=== PATIENT | male | born 1990 | race African-American/Black ===

== ENCOUNTER 2018-12-13 17:26 | Emergency (ER) | payer OTHER ==
[~2018-12-13] VITALS: Ht 175.3 cm; Wt 59.0 kg
[~2018-12-13 17:26] MED LIST: CLOTRIMAZOLE AF30 GM TOPIC; DIPHENHYDRAMINE25 M1 ORAL; IBUPROFEN600 MG ORAL; NKM; NORCO 5-325 TA1 EAC1 ORAL; PREDNISONE20 MG ORAL; RANITIDINE HCL150 MG ORAL
--- NOTE | 2018-12-13 17:50 | NUR ---
ED Nurse Note: Patient walked in c/o parietal region abscess x 5 days. Denies pain at this time. Pt is A&O x4, V/S stable with no s/s of acute distress noted at this time. Pt denies any medical hx; will continue to monitor the pt.
[2018-12-13 17:51] VITALS: BP 106/62
--- NOTE | 2018-12-13 17:54 | NUR ---
ED Nurse Note: pt came to ED from home c/o rash on head x 4 days ago. per pt pain 05/04. per pt he took tylenol and ibuprofen for the pain.
--- NOTE | 2018-12-13 18:42 | Emergency Room Report ---
History of Present Illness General Chief Complaint: Skin Rash/Abscess Source: Patient Present Illness HPI 28-year-old male presents to the emergency department complaining of progressive swelling and erythema to a very localized area on the left side of his head. He describes some tenderness with palpation but otherwise no pain. Denies itching, trauma or fall. He denies similar symptoms in the past. Denies CABRERA, ear pain, changes in hearing, Fevers or chills. Allergies: Coded Allergies: FISH CONTAINING PRODUCTS (Verified Allergy, Unknown, 09/05/15) Patient History Past Medical History: see triage record Past Surgical History: none Pertinent Family History: none Immunizations: UTD Reviewed Nursing Documentation: PMH: Agreed; PSxH: Agreed Nursing Documentation-PMH Past Medical History: No Stated History Review of Systems All Other Systems: negative except mentioned in HPI Physical Exam Vital Signs Date Time Temp Pulse Resp B/P (MAP) Pulse Ox O2 Delivery O2 Flow Rate FiO2 12/13/18 17:46 99.0 74 18 106/62 93 Room Air Sp02 EP Interpretation: reviewed, normal General Appearance: no apparent distress, alert, GCS 15, non-toxic Head: normocephalic, atraumatic, other - 1.5cm in diameter epidermoid cyst with some erythema and drainage. mild tenderness. located on the left side burn. no LAD. portion of the capsule is noted to be open and visible Eyes: bilateral eye normal inspection, bilateral eye PERRL ENT: hearing grossly normal, normal voice Neck: full range of motion Respiratory: lungs clear, normal breath sounds, speaking full sentences Cardiovascular #1: regular rate, rhythm Musculoskeletal: gait/station normal, normal range of motion Neurologic: alert, oriented x3, responsive, motor strength/tone normal, sensory intact, speech normal, grossly normal Psychiatric: judgement/insight normal Skin: normal color, no rash, warm/dry, well hydrated, other - 1.5cm in diameter epidermoid cyst with some erythema and drainage. mild tenderness. located on the left side burn. no LAD. portion of the capsule is noted to be open and visible Lymphatic: no adenopathy Medical Decision Making PA Attestation Dr. Curry is my supervising Physician whom patient management has been discussed with. Diagnostic Impression: Primary Impression: Epidermal cyst ER Course 48-year-old female presents to the emergency department complaining of need for medication refill. Patient reports that she is not taken her high blood pressure medication for over one week. Patient states that she was told her blood pressure was systolic 197 and that she needed to go to the ER. Patient states that during triage systolic was 200 something. Denies headache, dizziness, nausea, vomiting, abdominal pain, syncope or visual changes. Patient denies floaters or flashing lights. Denies chest pain, shortness of breath or dyspnea. he denies pain at this time. Ddx considered but are not limited to cellulitis, abscess, cystic acne, necrotizing fasciitis, insect bite. Vital signs: are WNL, pt. is afebrile H&PE are most consistent with : 1.5cm in diameter epidermoid cyst with some erythema and drainage. mild tenderness. located on the left side burn. no LAD. portion of the capsule is noted to be open and visible ORDERS: none required at this time, the diagnosis is clinical ED INTERVENTIONS: Bacitracin is applied. I discussed with this patient that definitive treatment involved surgical excision of the entire cyst otherwise his symptoms will be reoccurring. DISCHARGE: At this time pt. is stable for d/c to home. Will provide printed patient care instructions, and any necessary prescriptions. Care plan and follow up instructions have been discussed with the patient prior to discharge. Last Vital Signs Date Time Temp Pulse Resp B/P (MAP) Pulse Ox O2 Delivery O2 Flow Rate FiO2 12/13/18 17:51 98.9 68 18 106/62 93 Room Air Disposition: HOME, SELF-CARE Condition: Stable Scripts Cephalexin* (KEFLEX*) 500 Mg Capsule 500 MG ORAL EVERY 12 HOURS for 7 Days, #14 CAP 0 Refills Prov: Jennifer Farrell 12/13/18 Clindamycin Phosphate (CLINDAGEL) 40 Ml Gel..ml. 1 APPLIC TP BID, #40 ML Prov: Jennifer Farrell 12/13/18 Patient Instructions: Epidermal Cyst Additional Instructions: Take medications as directed. Follow up with a Primary Care Provider in 3-5 days,for referral : Recommend follow-up with dermatology for surgical cyst removal. --Please review list of primary care clinics, if you do not already have a primary care provider Return sooner to ED if new symptoms occur, or current symptoms become worse. - Please note that this Emergency Department Report was dictated using [employer] Fashion[employer] specialist technology software, occasionally this can lead to erroneous entry secondary to interpretation by the dictation equipment. Jennifer Farrell Dec 13, 2018 18:42
[2018-12-13] MEDS ORDERED: CEPHALEXIN500 MG ORAL (18:44)
[2018-12-13] MEDS ORDERED: CLINDAGEL40 M1 TP (18:44)
[2018-12-13] MEDS ORDERED: Bacitracin Oint UD TOPIC ONE (18:45)
[2018-12-13 18:59] VITALS: BP 106/62
--- NOTE | 2018-12-13 18:59 | NUR ---
ED Nurse Note: pt was cleared for discharge by olegario. prescription and discharge instruction explained. pt is aox 4, pt able to verbalize understanding. id band removed. pt able to walk with steady gait. pt left with all belongings
== END 2018-12-13 19:00 | disposition home or self-care (01) ==
LOC: EMR 18:10
DX: L72.0 Epidermal cyst (principal)
CPT/HCPCS: 99282

== ENCOUNTER 2019-01-16 14:50 | Emergency (ER) | payer OTHER ==
[~2019-01-16] VITALS: Ht 172.7 cm; Wt 65.8 kg
[~2019-01-16 14:50] MED LIST changes: +CEPHALEXIN500 MG ORAL; +CLINDAGEL40 M1 TP
[2019-01-16 14:55] VITALS: BP 113/68
[2019-01-16] MEDS ORDERED: NKM (14:59)
--- NOTE | 2019-01-16 15:01 | NUR ---
ED Nurse Note: Pt c/o bump on his left upper lip 1-2 days. No trauma to his face and no bleeding. Pt is AAO x4, with no difficulty breathing.
[2019-01-16] MEDS ORDERED: BACITRACIN-P28.35 GM TP (15:19)
[2019-01-16] MEDS ORDERED: ERYTHROMYCIN 2%30 GM TP (15:19)
--- NOTE | 2019-01-16 15:20 | Emergency Room Report ---
History of Present Illness General Chief Complaint: Skin Rash/Abscess Source: Patient Present Illness HPI 28-year-old male patient presents the ER complaining of bump on his upper lip for the past 2 days. Reports bump is painful. Denies drainage. Denies fever, chest pain, shortness of breath. Denies rash or bumps elsewhere. Denies any medication for relief of symptoms. Denies other aggravating or relieving factors. Allergies: Coded Allergies: FISH CONTAINING PRODUCTS (Verified Allergy, Unknown, 09/05/15) Patient History Past Medical History: see triage record Reviewed Nursing Documentation: PMH: Agreed; PSxH: Agreed Nursing Documentation-PMH Past Medical History: No Stated History Review of Systems All Other Systems: negative except mentioned in HPI Physical Exam Vital Signs Date Time Temp Pulse Resp B/P (MAP) Pulse Ox O2 Delivery O2 Flow Rate FiO2 01/16/19 14:55 98.2 18 113/68 99 Room Air 01/16/19 14:55 78 Sp02 EP Interpretation: reviewed, normal General Appearance: well appearing, no apparent distress, alert, GCS 15, non- toxic Head: normocephalic, atraumatic Eyes: bilateral eye normal inspection, bilateral eye PERRL ENT: hearing grossly normal, normal pharynx, no angioedema, normal voice, uvula midline, moist mucus membranes Neck: full range of motion Respiratory: lungs clear, normal breath sounds, no rhonchi, no respiratory distress, no accessory muscle use, no wheezing, speaking full sentences Cardiovascular #1: regular rate, rhythm, no edema Musculoskeletal: back normal, digits/nails normal, gait/station normal, normal range of motion, non-tender Neurologic: alert, oriented x3, responsive, motor strength/tone normal, sensory intact Skin: other - Acne lesion on upper lip, comes to a point, no drainage, no surrounding edema , no palpable mass Medical Decision Making PA Attestation Dr. Curry is my supervising Physician whom patient management has been discussed with. Diagnostic Impression: Primary Impression: Acne ER Course Pt. presents to the ED c/o bump on upper lip. Ddx considered but are not limited to acne, comedones, abscess, cellulitis, folliculitis, pustule Vital signs: are WNL, pt. is afebrile Ordered medication. ER COURSE Physical exam consistent with acne. Able to express pus in the ER, no I&D procedure required, patient tolerated procedure well without difficulty. Will discharge home with medication. Apply warm compresses. Keep clean and dry. Follow-up with primary care provider discussed referral to dermatology. DISCHARGE: At this time pt. is stable for d/c to home. Patient resting comfortably, in no acute distress, nontoxic appearinge. Will provide printed patient care instructions, and any necessary prescriptions. Care plan and follow up instructions have been discussed with the patient prior to discharge. Patient provided with list of healthcare clinics to establish primary care physician. Patient instructed to follow-up with primary care provider in 3 - 5 days. Patient questions asked and answered. ER precautions given. Patient instructed to return to ER immediately for any new or worsening of symptoms including but not limited to increasing SOB, persistent fever. - Please note that this Emergency Department Report was dictated using [employer] manager [place] technology software, occasionally this can lead to erroneous entry secondary to interpretation by the dictation equipment. Last Vital Signs Date Time Temp Pulse Resp B/P (MAP) Pulse Ox O2 Delivery O2 Flow Rate FiO2 01/16/19 14:55 98.2 78 18 113/68 99 Room Air Status: improved Disposition: HOME, SELF-CARE Condition: Stable Scripts Bacitracin/Polymyxin B Sulfate (BACITRACIN-POLYMYXIN OINTMENT) 28.35 Gm Oint...g. 1 APPLIC TP BID, #28 GM Prov: Rafa Jain 01/16/19 Erythromycin Base/Ethanol (ERYTHROMYCIN 2% GEL) 30 Gm Gel..gram. 30 GM TP BID, #30 GM Prov: Rafa Jain 01/16/19 Patient Instructions: Acne, [id number] Additional Instructions: Followup with primary care provider in 3 -5 days. Request referral to dermatology as needed. Do not scratch or itch. Apply warm compresses to affected area. Patient questions asked and answered. ER precautions given, patient instructed to return to ER immediately for any new or worsening of symptoms. [facility] Rafa Jain Jan 16, 2019 15:19
[2019-01-16 15:23] VITALS: BP 118/70
--- NOTE | 2019-01-16 15:23 | NUR ---
ED Nurse Note: Pt cleared by health Care Provider for discharge. DC instructions/prescription was given and explained to pt and verbalized understanding of teachings. All medical devices such as ID band removed. Pt is AAO x4, ambulatory and left with all personal belongings.
== END 2019-01-16 15:23 | disposition home or self-care (01) ==
LOC: EMR 15:18
DX: L70.9 Acne, unspecified (principal)
CPT/HCPCS: 99283

== ENCOUNTER 2019-04-14 20:07 | Emergency (ER) | payer OTHER ==
[~2019-04-14] VITALS: Ht 175.3 cm; Wt 63.5 kg
[~2019-04-14 20:07] MED LIST changes: +BACITRACIN-P28.35 GM TP; +ERYTHROMYCIN 2%30 GM TP
[2019-04-14 20:40] VITALS: BP 113/67
--- NOTE | 2019-04-14 20:40 | NUR ---
ER Nurse Note: Pt came to ER c/o burning and pain when voiding. Pt states he had white discharge after having unprotected sex 2 weeks ago. Pt a&ox4, VSS, no signs of distress. Will continue to montior.
[2019-04-14 20:53] LABS: APPEARANCE,URINE SLIGHTLY CLOUDY; BILIRUBIN, URINE NEGATIVE (NEGATIVE); GLUCOSE, URINE (UA) NEGATIVE (NEGATIVE); KETONES,URINE NEGATIVE (NEGATIVE); LEUKOCYTE ESTERASE ,URINE 3+ (NEGATIVE); NITRITE,URINE NEGATIVE (NEGATIVE); PH,URINE 6 (4.5-8.0); PROTEIN,URINE NEGATIVE (NEGATIVE); UROBILINOGEN,URINE 4 MG/DL (0.0-1.0)
--- NOTE | 2019-04-14 20:56 | Emergency Room Report ---
History of Present Illness General Chief Complaint: Male Urogenital Problems Source: Patient Present Illness HPI Patient is a 28-year-old male presented after increased urinary burning sensation. Patient reports having onset of symptoms approximately 2 weeks ago after having unprotected sex. He reports having her increased urethral discharge. He reports having increased discharge which was cloudy in nature. He denies any fever. Not been vomiting. He reports having some increased urgency of urination. He denies any testicular swelling or any skin lesions. Allergies: Coded Allergies: FISH CONTAINING PRODUCTS (Verified Allergy, Unknown, 09/05/15) Patient History Past Medical History: see triage record Reviewed Nursing Documentation: PMH: Agreed; PSxH: Agreed Nursing Documentation-PMH History Of Psychiatric Problem: Yes - STD Review of Systems All Other Systems: negative except mentioned in HPI Physical Exam Vital Signs Date Time Temp Pulse Resp B/P (MAP) Pulse Ox O2 Delivery O2 Flow Rate FiO2 04/14/19 20:25 97.9 73 18 99 Room Air General Appearance: well appearing, no apparent distress, alert, GCS 15, non- toxic Head: normocephalic, atraumatic ENT: hearing grossly normal, normal voice Neck: full range of motion, supple Respiratory: chest non-tender, lungs clear, normal breath sounds, no respiratory distress, speaking full sentences Cardiovascular #1: normal inspection Gastrointestinal: normal inspection Genitourinary: no CVA tenderness Neurologic: normal inspection, alert, oriented x3, responsive, software engineer advisor III-XII nml as tested, normal gait Psychiatric: mood/affect normal Skin: normal inspection, normal color, no rash Medical Decision Making Diagnostic Impression: Primary Impression: Urethritis ER Course Patient present for dysuria. Differential diagnosis include was not limited to urethritis, urinary tract infection, herpes, among others. Patient has a benign exam and does not appear to require any imaging or laboratory testing at this time. Patient noted to have dysuria after recent unprotected sex. He states that he had no allergies. He was noted to have symptomatology consistent with urethritis. Patient was given Rocephin IM. He was given given prescription for doxycycline. He was advised to follow-up with his primary care physician for recheck. Labs Test 04/14/19 20:31 Urine Color Yellow Urine Appearance Slightly cloudy Urine pH 6 (4.5-8.0) Urine Specific [place] 1.020 (1.005-1.035) Urine Protein Negative (NEGATIVE) Urine Glucose (UA) Negative (NEGATIVE) Urine Ketones Negative (NEGATIVE) Urine Blood 2+ (NEGATIVE) Urine Nitrite Negative (NEGATIVE) Urine Bilirubin Negative (NEGATIVE) Urine Urobilinogen 4 MG/DL (0.0-1.0) Urine Leukocyte Esterase 3+ (NEGATIVE) Urine RBC 0-2 /HPF (0 - 0) Urine WBC Tntc /HPF (0 - 0) Urine Squamous Epithelial Cells None /LPF (NONE/OCC) Urine Bacteria Occasional /HPF (NONE) Last Vital Signs Date Time Temp Pulse Resp B/P (MAP) Pulse Ox O2 Delivery O2 Flow Rate FiO2 04/14/19 20:25 97.9 73 18 99 Room Air Status: improved Disposition: HOME, SELF-CARE Condition: Stable Scripts Doxycycline Monohydrate* (DOXYCYCLINE MONOHYDRATE*) 100 Mg Capsule 100 MG ORAL Q12H, #14 CAP 0 Refills Prov: Allan Meneses MD 04/14/19 Allan Meneses MD April 14, 2019 20:56
[2019-04-14 20:57] LABS: COLOR,URINE YELLOW
[2019-04-14] MEDS ORDERED: DOXYCYCLINE MO100 MG ORAL (20:57)
[2019-04-14] MEDS ORDERED: Lidocaine 1% MPF 10mg/ml 5ml INJ ONE (21:00)
[2019-04-14 21:45] VITALS: BP 113/67
--- NOTE | 2019-04-14 21:45 | NUR ---
ER Nurse Note: All orders completed per ERMD orders. Pt seen, treated, medically cleared for discharge by ERMD. Discharge instructions and prescriptions given with repeat verbazliaion by pt. Instructed pt to follow up with primary care provider within one week. Pt a&ox4, VSS, no signs of distress. ID band removed. Pt left with all belongings with steady gait via own transportation.
== END 2019-04-14 21:45 | disposition home or self-care (01) ==
LOC: EMR 21:00
DX: N34.2 Other urethritis (principal); Z91.013 Allergy to seafood
CPT/HCPCS: 81003; 87086; 96372; 96374; 99284; J0696

== ENCOUNTER 2019-07-07 16:50 | Emergency (ER) | payer OTHER ==
[~2019-07-07] VITALS: Ht 175.3 cm; Wt 72.6 kg
[~2019-07-07 16:50] MED LIST changes: +DOXYCYCLINE MO100 MG ORAL
[2019-07-07 17:10] VITALS: BP 102/57
--- NOTE | 2019-07-07 17:10 | NUR ---
ED Nurse Note: pt walked in to ED due to toothache and pt wants durg rehab referal. AAO x4. respirations even and non-labored noted. will wait for the further order.
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
[2019-07-07] MEDS ORDERED: CHLORHEXIDINE473 ML MM (17:46)
[2019-07-07] MEDS ORDERED: AMOXICILLIN500 MG ORAL (17:46)
[2019-07-07 17:55] VITALS: BP 102/57
--- NOTE | 2019-07-07 17:55 | NUR ---
ER DISCHARGE NOTE: Patient is cleared to be discharged per ERMD, pt is aox4, on room air, with stable vital signs. pt was given dc and prescription instructions, pt was able to verbalize understanding, pt id band removed without complications. pt is able to ambulate with steady gait. pt took all belongings.
== END 2019-07-07 17:56 | disposition home or self-care (01) ==
LOC: EMR 17:50
DX: K05.20 Aggressive periodontitis, unspecified (principal); F19.10 Other psychoactive substance abuse, uncomplicated; Z91.013 Allergy to seafood
CPT/HCPCS: 99282

== ENCOUNTER 2019-09-10 19:14 | Emergency (ER) | payer OTHER ==
[~2019-09-10] VITALS: Ht 175.3 cm; Wt 63.5 kg
[~2019-09-10 19:14] MED LIST changes: +AMOXICILLIN500 MG ORAL; +CHLORHEXIDINE473 ML MM
--- NOTE | 2019-09-10 19:47 | NUR ---
ED Nurse Note: Patient brought in by ambulance for behavioral disturbance with history of recreational drug use. Mom at bedside.
--- NOTE | 2019-09-10 20:00 | NUR ---
ED Nurse Note: Patient tolerated IV start well, blood drawn and sent to lab, urine specimen pending void.
[2019-09-10 20:26] VITALS: BP 110/66
[2019-09-10 20:33] LABS: BASOPHILS % (AUTO) 0.6 % (0.0-2.0); EOSINOPHILS % (AUTO) 0.1 % (0.0-3.0); HEMATOCRIT 44.7 % (42.0-52.0); HEMOGLOBIN 15.2 G/DL (14.2-18.0); LYMPHOCYTES % (AUTO) 11.9 % (20.0-45.0); MEAN CORPUSCULAR VOLUME 96 FL (80-99); MONOCYTES % (AUTO) 9.4 % (1.0-10.0); PLATELET COUNT 246 K/UL (150-450); RED BLOOD COUNT 4.67 M/UL (4.70-6.10); RED CELL DISTRIBUTION WIDTH 11.4 % (11.6-14.8); WHITE BLOOD COUNT 12.2 K/UL (4.8-10.8)
[2019-09-10 20:52] LABS: ANION GAP 10 mmol/L (5-15); BLOOD UREA NITROGEN 16 mg/dL (7-18); CALCIUM 10.1 MG/DL (8.5-10.1); CARBON DIOXIDE 28 MMOL/L (21-32); CHLORIDE 101 MMOL/L (98-107); CREATININE 1.2 MG/DL (0.55-1.30); POTASSIUM 4.9 MMOL/L (3.5-5.1); SODIUM 139 MMOL/L (136-145)
--- NOTE | 2019-09-10 21:01 | Emergency Room Report ---
History of Present Illness General Chief Complaint: Behavioral Complaint Source: Patient Present Illness HPI 28-year-old male significant history of methamphetamine abuse and marijuana use brought in by paramedics after he started reporting that he is hearing voices and feeling paranoia. According to mom who was notified later by patient's mom to observe the hallucinations patient has an extensive history of methamphetamine use and he has been trying to get into rehab centers without any success. Patient reports that he uses methamphetamine on daily basis, denies any other drug use, alcohol intake. Reports that the voices are telling him to run away however denies any suicidal thoughts or homicidal ideations. Patient does not own a firearm. Mom is concerned about underlying bipolar or schizophrenic disorder I advised the patient to follow-up with psychiatrist in that regard however he needs to be off methamphetamine in order to be ready for that assessment. Denies chest pain, shortness of breath, palpitation, abdominal pain, nausea vomiting and all the symptoms. Patient sitting comfortably with stable vital sign and cooperative. Allergies: Coded Allergies: FISH CONTAINING PRODUCTS (Verified Allergy, Unknown, 09/05/15) Patient History Past Medical History: see triage record Past Surgical History: unable to obtain Family History: none Social History: drug use - meth Immunizations: UTD Reviewed Nursing Documentation: PMH: Agreed; PSxH: Agreed Nursing Documentation-PMH Past Medical History: No Stated History Review of Systems All Other Systems: negative except mentioned in HPI Physical Exam Vital Signs Date Time Temp Pulse Resp B/P (MAP) Pulse Ox O2 Delivery O2 Flow Rate FiO2 09/10/19 19:05 98.4 73 20 110/66 (81) 99 Room Air Sp02 EP Interpretation: reviewed, normal General Appearance: alert/responsive, no apparent distress, GCS 15, non-toxic Head: atraumatic Eyes: PERRL, lids + conjunctiva normal ENT: hearing intact, no angioedema Neck: supple/symm/no masses, no meningismus Respiratory: effort normal, no wheezing, chest symmetrical Cardiovascular: regular rate, rhythm, no edema Gastrointestinal: non-tender, no mass, non-distended, no rebound/guarding, normal bowel sounds Musculoskeletal: gait & station normal, strength & tone normal, normal ROM, non -tender Neurologic: oriented x3, sensory intact, normal speech Psychiatric: memory normal, no suicidal/homicidal ideation, other - Delusions and hallucinations Skin: no rash Lymphatic: normal inspection Medical Decision Making PA Attestation All my diagnosis and treatment plans were reviewed ad discussed with my supervising physician Dr. Morejon Diagnostic Impression: Primary Impression: Methamphetamine abuse Additional Impression: UTI (urinary tract infection) ER Course 28-year-old male significant history of methamphetamine abuse and marijuana use brought in by paramedics after he started reporting that he is hearing voices and feeling paranoia. According to mom who was notified later by patient's mom to observe the hallucinations patient has an extensive history of methamphetamine use and he has been trying to get into rehab centers without any success. Patient reports that he uses methamphetamine on daily basis, denies any other drug use, alcohol intake. Reports that the voices are telling him to run away however denies any suicidal thoughts or homicidal ideations. Patient does not own a firearm. Mom is concerned about underlying bipolar or schizophrenic disorder I advised the patient to follow-up with psychiatrist in that regard however he needs to be off methamphetamine in order to be ready for that assessment. Denies chest pain, shortness of breath, palpitation, abdominal pain, nausea vomiting and all the symptoms. Patient sitting comfortably with stable vital sign and cooperative. Ddx considered but are not limited to: generalized anxiety disorder, panic attack, depression with psychotic feature, bipolar disorder, drug overdose Vital signs: are WNL, pt. is afebrile H&PE are most consistent with: Methamphetamine abuse, UTI ORDERS: Psychiatric order set, keflex ED INTERVENTIONS: NS bolus DISCHARGE: At this time pt. is stable for d/c to home. Will provide printed patient care instructions, and any necessary prescriptions. Care plan and follow up instructions have been discussed with the patient prior to discharge. Patient is stable to be discharged home voluntarily go to psychiatric facilities. Patient is 28 years old, has full judgment and aware of the surroundings and expresses voluntary interest in checking himself into mental health facility or rehab center. Mom is concerned that he needs to stay at the hospital and be admitted tonight as he has no vertigo and she does not want him to go home with her. After discharge the patient patient starts acting, same that is not happy that he is possibly controlled with methamphetamine mom starts needling him that he needs to start saying that his thoughts of hurting himself or problems in order to stay. Patient stable time of discharge and denies any suicidal homicidal ideation. Last Vital Signs Date Time Temp Pulse Resp B/P (MAP) Pulse Ox O2 Delivery O2 Flow Rate FiO2 09/10/19 20:26 98.4 79 20 110/66 99 Room Air Disposition: HOME, SELF-CARE Condition: Stable Scripts Cephalexin* (KEFLEX*) 500 Mg Capsule 500 MG ORAL EVERY 6 HOURS for 7 Days, #28 CAP Prov: Suly Reyes 09/10/19 Referrals: [facility] + [facility] - Peds ER - [facility] Intake Hotline - [facility] - [facility] Patient Instructions: Self-Destructive Behavior, Stimulant Use Disorder- Methamphetamines, Urinary Tract Infection, [id number] Additional Instructions: Follow-up with psychiatrist, consider checking himself into rehab center and gave you a list of mental health facilities that you can contact, take medication as directed, if worsening symptoms return to the emergency room. Suly Reyes Sep 10, 2019 21:01
[2019-09-10 21:03] LABS: ALANINE AMINOTRANSFERASE 40 U/L (12-78); ALBUMIN 4.9 G/DL (3.4-5.0); ALBUMIN/GLOBULIN RATIO 1.3 (1.0-2.7); ALKALINE PHOSPHATASE 62 U/L (46-116); ASPARTATE AMINO TRANSFERASE 61 U/L (15-37); BILIRUBIN,TOTAL 1.5 MG/DL (0.2-1.0)
[2019-09-10 21:04] LABS: BILIRUBIN,DIRECT 0.3 MG/DL (0.0-0.3)
[2019-09-10 22:05] LABS: APPEARANCE,URINE CLEAR; BILIRUBIN, URINE NEGATIVE (NEGATIVE); COLOR,URINE YELLOW; GLUCOSE, URINE (UA) NEGATIVE (NEGATIVE); KETONES,URINE 2+ (NEGATIVE); LEUKOCYTE ESTERASE ,URINE 2+ (NEGATIVE); NITRITE,URINE NEGATIVE (NEGATIVE); PH,URINE 6 (4.5-8.0); PROTEIN,URINE 2+ (NEGATIVE); UROBILINOGEN,URINE NORMAL MG/DL (0.0-1.0)
[2019-09-10] MEDS ORDERED: CEPHALEXIN500 MG ORAL (22:16)
--- NOTE | 2019-09-10 22:30 | NUR ---
ED Nurse Note: Patient cleared for discharge by ER provider, no s/s of acute distress. Patient verbalized understanding of discharge instructions. Patietn ID band removed, IV removed. Patient departed with all belongings accompanied by his mother.
[2019-09-10 22:31] VITALS: BP 110/66
== END 2019-09-10 22:29 | disposition home or self-care (01) ==
LOC: EDBD 19:14 → EMR 21:49
DX: F15.10 Other stimulant abuse, uncomplicated (principal); N39.0 Urinary tract infection, site not specified; Z91.013 Allergy to seafood
CPT/HCPCS: 36415; 80053; 80307; 81001; 82248; 85025; 96360; Z7502; 99284

== ENCOUNTER 2020-01-06 14:27 | Emergency (ER) | payer OTHER ==
[~2020-01-06] VITALS: Ht 175.3 cm; Wt 63.5 kg
[2020-01-06 14:53] VITALS: BP 118/62
--- NOTE | 2020-01-06 14:53 | NUR ---
ED Nurse Note: Pt walked in from home c/o rash on right arm and upper body for 1 week. Respirations even and unlabored on room air. Vitals stable as documented.
[2020-01-06] MEDS ORDERED: ZYRTEC10 MG ORAL (15:15)
--- NOTE | 2020-01-06 15:15 | Emergency Room Report ---
History of Present Illness General Chief Complaint: Skin Rash/Abscess Source: Patient Present Illness HPI 29-year-old male presents to the emergency department complaining of diffuse rash that is not itchy on his torso and back. He denies pain. Patient reports initially approximately 1 week ago he had a small area on his upper stomach with symptoms however now his symptoms have progressed to his entire torso. Pt. denies fevers, chills or swollen tender lymph nodes. Denies lesions/rashes elsewhere on the body. Denies new medications or body washes or creams. Denies swelling of the lips, tongue , throat or airway. Denies wheezing, or shortness of breath. Denies recent travel, recent illness or ill contacts. denies blisters, oral lesions, or sloughing of the skin. Allergies: Coded Allergies: FISH CONTAINING PRODUCTS (Verified Allergy, Unknown, 09/05/15) Patient History Past Medical History: see triage record Past Surgical History: none Pertinent Family History: none Immunizations: UTD Reviewed Nursing Documentation: PMH: Agreed; PSxH: Agreed Nursing Documentation-PMH Past Medical History: No Stated History Review of Systems All Other Systems: negative except mentioned in HPI Physical Exam Vital Signs Date Time Temp Pulse Resp B/P (MAP) Pulse Ox O2 Delivery O2 Flow Rate FiO2 01/06/20 14:43 98.1 96 17 112/52 (72) 99 Room Air Sp02 EP Interpretation: reviewed, normal General Appearance: no apparent distress, alert, GCS 15, non-toxic Head: normocephalic, atraumatic Eyes: bilateral eye normal inspection, bilateral eye PERRL ENT: hearing grossly normal, normal voice, other - no swelling of the lips or tongue Neck: full range of motion Respiratory: lungs clear, normal breath sounds, no wheezing, speaking full sentences Cardiovascular #1: regular rate, rhythm Gastrointestinal: non tender, soft, other - rash Rectal: deferred Genitourinary: normal inspection Musculoskeletal: normal range of motion, gait/station normal, non-tender, other - rash on back Neurologic: alert, motor strength/tone normal, oriented x3, sensory intact, responsive, speech normal Psychiatric: judgement/insight normal Skin: rash - Multiple red oval patches diffuse along the torso anteriorly and posteriorly as well as the arms. No surrounding erythema or warmth to palpation. No crusting no blisters or vesicles. Lymphatic: no adenopathy Medical Decision Making PA Attestation Dr. Macias is my supervising Physician whom patient management has been discussed with. Diagnostic Impression: Primary Impression: Pityriasis rosea-like skin eruption ER Course 29-year-old male presents to the emergency department complaining of diffuse rash that is not itchy on his torso and back. He denies pain. Patient reports initially approximately 1 week ago he had a small area on his upper stomach with symptoms however now his symptoms have progressed to his entire torso. Pt. denies fevers, chills or swollen tender lymph nodes. Denies lesions/rashes elsewhere on the body. Denies new medications or body washes or creams. Denies swelling of the lips, tongue , throat or airway. Denies wheezing, or shortness of breath. Denies recent travel, recent illness or ill contacts. denies blisters, oral lesions, or sloughing of the skin. Ddx considered but are not limited to cellulitis, scabies, shingles, varicella, dermatitis, urticaria, eczema, tinea, viral exanthem, SJS Vital signs: are WNL, pt. is afebrile H&PE are most consistent with pityriasis rosea-like skin eruption. No evidence to suggest acute impending airway compromise or anaphylaxis. ORDERS: none required at this time, the diagnosis is clinical ED INTERVENTIONS: None required at this time. DISCHARGE: At this time pt. is stable for d/c to home. Will provide printed patient care instructions, and any necessary prescriptions. Care plan and follow up instructions have been discussed with the patient prior to discharge. Last Vital Signs Date Time Temp Pulse Resp B/P (MAP) Pulse Ox O2 Delivery O2 Flow Rate FiO2 01/06/20 14:53 98.1 81 17 118/62 99 Room Air Status: improved Disposition: HOME, SELF-CARE Condition: Stable Scripts Cetirizine Hcl* (ZYRTEC*) 10 Mg Tablet 10 MG ORAL DAILY, #30 TAB 0 Refills Prov: Jennifer Farrell 01/06/20 Patient Instructions: Pityriasis Rosea, Rash Additional Instructions: Take medications as directed. Follow up with a Primary Care Provider in 3-5 days for DERMATOLOGY REFERRAL , even if your symptoms have resolved. Return sooner to ED if new symptoms occur, or current symptoms become worse. - Please note that this Emergency Department Report was dictated using [employer] tractor operator technology software, occasionally this can lead to erroneous entry secondary to interpretation by the dictation equipment. Jennifer Farrell Jan 06, 2020 15:15
[2020-01-06 15:31] VITALS: BP 114/68
--- NOTE | 2020-01-06 15:31 | NUR ---
ER DISCHARGE NOTE: Patient is cleared to be discharged per ERMD, pt is aox4, on room air, with stable vital signs as documented. pt was given dc and prescription instructions and was able to verbalize understanding. pt id band removed. pt is able to ambulate with steady gait. pt took all belongings.
== END 2020-01-06 15:30 | disposition home or self-care (01) ==
LOC: EMR 15:22
DX: L42 Pityriasis rosea (principal); Z91.013 Allergy to seafood
CPT/HCPCS: 99282

== ENCOUNTER 2020-01-13 12:16 | Emergency (ER) | payer OTHER ==
[~2020-01-13] VITALS: Ht 175.3 cm; Wt 63.5 kg
[~2020-01-13 12:16] MED LIST changes: +ZYRTEC10 MG ORAL
[2020-01-13 12:40] VITALS: BP 121/74
--- NOTE | 2020-01-13 12:40 | NUR ---
ED Nurse Note: PT LEFT W/O BEING SEEN. PT IS AOX4, NAD NOTED, VSS. PT AMBULATORY ON ROOM AIR. ABLE TO CARE FOR SELF.
--- NOTE | 2020-01-13 14:36 | Emergency Room Report ---
History of Present Illness General Chief Complaint: Skin Rash/Abscess Source: Patient Present Illness HPI This patient left prior to evaluation by medical provider. Allergies: Coded Allergies: FISH CONTAINING PRODUCTS (Verified Allergy, Unknown, 09/05/15) Nursing Documentation-[facility] Past Medical History: No Stated History Physical Exam Vital Signs Date Time Temp Pulse Resp B/P (MAP) Pulse Ox O2 Delivery O2 Flow Rate FiO2 01/13/20 12:37 98.1 66 16 116/70 (85) 97 Room Air Medical Decision Making PA Attestation Dr. Steele Is my supervising Physician whom patient management has been discussed with. ER Course This patient left prior to evaluation by medical provider. Last Vital Signs Date Time Temp Pulse Resp B/P (MAP) Pulse Ox O2 Delivery O2 Flow Rate FiO2 01/13/20 12:37 98.1 66 16 116/70 (85) 97 Room Air Disposition: LEFT W/OUT BEING SEEN Condition: Unknown Jennifer Farrell Jan 13, 2020 14:36
[2020-01-13] MEDS ORDERED: MUPIROCIN22 GM TOPIC (17:36)
[2020-01-13] MEDS ORDERED: VIBRAMYCIN100 MG ORAL (17:36)
== END 2020-01-13 13:00 | disposition left against medical advice (07) ==
LOC: EMR 12:50
DX: R21 Rash and other nonspecific skin eruption (principal); Z53.21 Procedure and treatment not carried out due to patient leaving prior to being seen by health care provider; Z91.013 Allergy to seafood

== ENCOUNTER 2020-01-13 15:39 | Emergency (ER) | payer OTHER ==
[~2020-01-13] VITALS: Ht 175.3 cm; Wt 63.5 kg
[2020-01-13 16:18] VITALS: BP 91/54
--- NOTE | 2020-01-13 16:18 | NUR ---
ED Nurse Note: PT CAME IN DUE TO BUMP ON HIS UPPER LIP X 2 WEEKS. ALSO C/O BURNING PAIN WHEN URINATING.
--- NOTE | 2020-01-13 16:52 | NUR ---
ED Nurse Note: urine sent to lab
[2020-01-13 17:30] LABS: APPEARANCE,URINE CLEAR; BILIRUBIN, URINE NEGATIVE (NEGATIVE); COLOR,URINE PALE YELLOW; GLUCOSE, URINE (UA) NEGATIVE (NEGATIVE); KETONES,URINE NEGATIVE (NEGATIVE); LEUKOCYTE ESTERASE ,URINE NEGATIVE (NEGATIVE); NITRITE,URINE NEGATIVE (NEGATIVE); PH,URINE 5 (4.5-8.0); PROTEIN,URINE NEGATIVE (NEGATIVE); UROBILINOGEN,URINE NORMAL MG/DL (0.0-1.0)
[2020-01-13] MEDS ORDERED: Lidocaine 1% MPF 10mg/ml 5ml INJ ONE (17:30)
--- NOTE | 2020-01-13 17:31 | Emergency Room Report ---
History of Present Illness General Chief Complaint: Skin Rash/Abscess Source: Patient Present Illness HPI 29-year-old male presents to the emergency department with 2 complaints 1 being a progressive swollen bump on his upper lip x2 weeks. Patient reports some redness to the area he denies blisters or crusting. Patient also has a secondary complaint of dysuria x3 days and states that the girl he was with tested positive for STDs and he is requesting treatment. He denies urinary frequency, penile discharge or hematuria. He denies abdominal pain or tenderness, fevers, chills, nausea, vomiting, genital lesions/rashes, swollen tender lymph nodes or joint pain. No other aggravating or relieving factors at this time. He denies pain at the moment. Allergies: Coded Allergies: FISH CONTAINING PRODUCTS (Verified Allergy, Unknown, 09/05/15) Patient History Past Medical History: see triage record Past Surgical History: none Pertinent Family History: none Reviewed Nursing Documentation: PMH: Agreed; PSxH: Agreed Nursing Documentation-PMH Past Medical History: No Stated History Review of Systems All Other Systems: negative except mentioned in HPI Physical Exam Vital Signs Date Time Temp Pulse Resp B/P (MAP) Pulse Ox O2 Delivery O2 Flow Rate FiO2 01/13/20 16:11 97.3 87 17 91/54 (66) 96 Room Air Sp02 EP Interpretation: reviewed, normal General Appearance: no apparent distress, alert, GCS 15, non-toxic Head: normocephalic, atraumatic Eyes: bilateral eye normal inspection, bilateral eye PERRL ENT: hearing grossly normal, normal voice, other - folliculitis of left upper lip, just below the nares. No blisters, vesicles or crusting. some erythema and tenderness. Neck: full range of motion Respiratory: lungs clear, normal breath sounds, speaking full sentences Cardiovascular #1: regular rate, rhythm Gastrointestinal: normal bowel sounds, non tender, soft Rectal: deferred Genitourinary: normal inspection, no CVA tenderness, other - gential exam deferred Musculoskeletal: back normal, normal range of motion, gait/station normal, non- tender Neurologic: alert, motor strength/tone normal, oriented x3, sensory intact, responsive, speech normal Psychiatric: judgement/insight normal Skin: other - folliculitis of left upper lip, just below the nares. No blisters , vesicles or crusting. some erythema and tenderness. Lymphatic: no adenopathy Medical Decision Making PA Attestation Dr. Meneses is my supervising Physician whom patient management has been discussed with. Diagnostic Impression: Primary Impression: Urethritis Additional Impression: Acute folliculitis ER Course 29-year-old male presents to the emergency department with 2 complaints 1 being a progressive swollen bump on his upper lip x2 weeks. Patient reports some redness to the area he denies blisters or crusting. Patient also has a secondary complaint of dysuria x3 days and states that the girl he was with tested positive for STDs and he is requesting treatment. He denies urinary frequency, penile discharge or hematuria. He denies abdominal pain or tenderness, fevers, chills, nausea, vomiting, genital lesions/rashes, swollen tender lymph nodes or joint pain. No other aggravating or relieving factors at this time. He denies pain at the moment. Ddx considered but are not limited to UTi , Urethritis, LGV, STI, Stone, Cystitis, prostatitis, colitis, herpes simplex, or ingrown hair just to name a few Vital signs: are WNL, pt. is afebrile H&PE are most consistent with Urethritis and contact with venereal disease. Pt. also has uncomplicated folliculitis of the left upper lip. ORDERS: - UA : mucus, no elevation in inflammatory markers ED INTERVENTIONS: -250mg Rocephin IM will d/c with po Doxy to cover for folliculitis and G & C. DISCHARGE: At this time pt. is stable for d/c to home. Will provide printed patient care instructions, and any necessary prescriptions. Care plan and follow up instructions have been discussed with the patient prior to discharge. Labs Test 01/13/20 16:49 Urine Color Pale yellow Urine Appearance Clear Urine pH 5 (4.5-8.0) Urine Specific [place] 1.020 (1.005-1.035) Urine Protein Negative (NEGATIVE) Urine Glucose (UA) Negative (NEGATIVE) Urine Ketones Negative (NEGATIVE) Urine Blood 2+ (NEGATIVE) Urine Nitrite Negative (NEGATIVE) Urine Bilirubin Negative (NEGATIVE) Urine Urobilinogen Normal MG/DL (0.0-1.0) Urine Leukocyte Esterase Negative (NEGATIVE) Urine RBC 10-15 /HPF (0 - 0) Urine WBC 0-2 /HPF (0 - 0) Urine Squamous Epithelial Cells None /LPF (NONE/OCC) Urine Bacteria Few /HPF (NONE) Urine Mucus Moderate /LPF (NONE/OCC) Last Vital Signs Date Time Temp Pulse Resp B/P (MAP) Pulse Ox O2 Delivery O2 Flow Rate FiO2 01/13/20 16:18 97.3 81 17 91/54 96 Room Air Status: improved Disposition: HOME, SELF-CARE Condition: Stable Scripts Mupirocin* (MUPIROCIN*) 22 Gm Oint...g. 1 APPLIC TOPIC THREE TIMES A DAY, #22 GM Prov: Jennifer Farrell 01/13/20 Doxycycline Hyclate* (VIBRAMYCIN*) 100 Mg Capsule 100 MG ORAL EVERY 12 HOURS for 7 Days, #14 CAP 0 Refills Prov: Jennifer Farrell 01/13/20 Patient Instructions: Folliculitis, Sexually Transmitted Disease, [id number] Additional Instructions: Take medications as directed. MAKE SURE YOUR PARTNERS GET TREATED WITH ANTIBIOTICS to prevent becoming re- infected No intercourse for 7-10 days, as you are infectious and can spread the bacterial infection. Follow up with PCP in 3-5 days Return sooner to ED if new symptoms occur, or current symptoms become Jennifer Farrell Jan 13, 2020 17:31
[2020-01-13] MEDS ORDERED: MUPIROCIN22 GM TOPIC (17:36)
[2020-01-13] MEDS ORDERED: VIBRAMYCIN100 MG ORAL (17:36)
[2020-01-13 17:42] VITALS: BP 97/59
--- NOTE | 2020-01-13 17:43 | NUR ---
ER DISCHARGE NOTE: Patient is cleared to be discharged per ERMD, pt is aox4, on room air, with stable vital signs. pt was given dc and prescription instructions, pt was able to verbalize understanding, pt id band removed. pt is able to ambulate with steady gait. pt took all belongings.
== END 2020-01-13 16:18 | disposition home or self-care (01) ==
LOC: EMR 16:08
DX: N34.2 Other urethritis (principal); L73.9 Follicular disorder, unspecified; Z91.013 Allergy to seafood; Z20.2 Contact with and (suspected) exposure to infections with a predominantly sexual mode of transmission
CPT/HCPCS: 81001; 96372; 96374; J0696; Z7502; 99284

== ENCOUNTER 2020-06-19 16:55 | Emergency (ER) | payer OTHER ==
[~2020-06-19] VITALS: Ht 175.3 cm; Wt 63.5 kg
[~2020-06-19 16:55] MED LIST changes: +MUPIROCIN22 GM TOPIC; +VIBRAMYCIN100 MG ORAL
--- NOTE | 2020-06-19 17:06 | NUR ---
ED Nurse Note: pt to brp to obtain urine sample. c/o penie burning sensation.
[2020-06-19 17:10] VITALS: BP 112/56
[2020-06-19 17:24] LABS: APPEARANCE,URINE CLEAR; BILIRUBIN, URINE 1+ (NEGATIVE); GLUCOSE, URINE (UA) NEGATIVE (NEGATIVE); KETONES,URINE 1+ (NEGATIVE); LEUKOCYTE ESTERASE ,URINE 1+ (NEGATIVE); NITRITE,URINE NEGATIVE (NEGATIVE); PH,URINE 5 (4.5-8.0); PROTEIN,URINE 2+ (NEGATIVE); UROBILINOGEN,URINE 1 MG/DL (0.0-1.0)
[2020-06-19 17:27] LABS: COLOR,URINE AMBER
[2020-06-19] MEDS ORDERED: Lidocaine 1% MPF 10mg/ml 5ml INJ ONE (17:30)
--- NOTE | 2020-06-19 17:35 | Emergency Room Report ---
History of Present Illness General Chief Complaint: Male Urogenital Problems Source: Patient Present Illness HPI 29 YO male presents to the ED c/o 07/04 in severity dysuria and itchy rash on his penis. Pt. denies testicular pain or swelling. He denies abdominal pain or tenderness. Pt. denies penile d/c. Pt. reports onset after unprotected intercourse. Pt. is suspicious for STD. He denies open lesions. Pt. denies fevers or chills. He denies swollen tender lymph nodes. Denies joint pain. He denies hematuria. NO other aggravating or relieving factors at this time. 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 Patient History Past Medical History: see triage record Past Surgical History: none Pertinent Family History: none Reviewed Nursing Documentation: PMH: Agreed; PSxH: Agreed Nursing Documentation-PMH Past Medical History: No Stated History Review of Systems All Other Systems: negative except mentioned in HPI Physical Exam Vital Signs Date Time Temp Pulse Resp B/P (MAP) Pulse Ox O2 Delivery O2 Flow Rate FiO2 06/19/20 17:00 98.4 106 16 101/58 (72) 95 Room Air Sp02 EP Interpretation: reviewed, normal General Appearance: no apparent distress, alert, GCS 15, non-toxic Head: normocephalic, atraumatic Eyes: bilateral eye normal inspection, bilateral eye PERRL ENT: hearing grossly normal, normal voice Neck: full range of motion Respiratory: lungs clear, normal breath sounds, speaking full sentences Cardiovascular #1: regular rate, rhythm Gastrointestinal: normal bowel sounds, non tender, soft Rectal: deferred Genitourinary: normal inspection, no CVA tenderness, scrotum normal, other - cremasteric reflux intact. NO testicular swelling. No obvious penile d/c. there is a annular appearing non-painful rash/lesion on the underside of the glans. No swollen tender lymphnodes. no blisters or vessicles. Musculoskeletal: back normal, normal range of motion, gait/station normal, non- tender Neurologic: alert, motor strength/tone normal, oriented x3, sensory intact, responsive, speech normal Psychiatric: judgement/insight normal Skin: rash - There is a annular appearing non-painful rash/lesion on the underside of the glans. No swollen tender lymphnodes. no blisters or vessicles. Lymphatic: no adenopathy Medical Decision Making PA Attestation Dr. Morales is my supervising Physician whom patient management has been discussed with. Diagnostic Impression: Primary Impression: Urethritis Additional Impression: Rash and other nonspecific skin eruption ER Course 29 YO male presents to the ED c/o 07/04 in severity dysuria and itchy rash on his penis. Pt. denies testicular pain or swelling. He denies abdominal pain or tenderness. Pt. denies penile d/c. Pt. reports onset after unprotected intercourse. Pt. is suspicious for STD. He denies open lesions. Pt. denies fevers or chills. He denies swollen tender lymph nodes. Denies joint pain. He denies hematuria. NO other aggravating or relieving factors at this time. 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 Vital signs: are WNL, pt. is afebrile H&PE are most consistent with Urethritis ORDERS: - UA : RBC's present, No significant inflammatory marker increase, nitrite negative ED INTERVENTIONS: -250mg Rocephin IM -I do not identify an emergent condition at this time. With current presentation , pt. is stable for close outpatient follow up and conservative treatment. D/ w pt. to return promptly to ED with worsening or new symptoms.- Pt. verbalizes' understanding and agreement with proposed treatment plan. DISCHARGE: At this time pt. is stable for d/c to home. Will provide printed patient care instructions, and any necessary prescriptions. Care plan and follow up instructions have been discussed with the patient prior to discharge. Labs Test 06/19/20 17:15 Urine Color Rachel Urine Appearance Clear Urine pH 5 (4.5-8.0) Urine Specific [place] 1.020 (1.005-1.035) Urine Protein 2+ (NEGATIVE) Urine Glucose (UA) Negative (NEGATIVE) Urine Ketones 1+ (NEGATIVE) Urine Blood 3+ (NEGATIVE) Urine Nitrite Negative (NEGATIVE) Urine Bilirubin 1+ (NEGATIVE) Urine Ictotest Negative (NEGATIVE) Urine Urobilinogen 1 MG/DL (0.0-1.0) Urine Leukocyte Esterase 1+ (NEGATIVE) Urine RBC 2-4 /HPF (0 - 0) Urine WBC 0-2 /HPF (0 - 0) Urine Squamous Epithelial Cells Occasional /LPF Urine Bacteria Few /HPF (NONE) Urine Mucus Many /LPF (NONE/OCC) Last Vital Signs Date Time Temp Pulse Resp B/P (MAP) Pulse Ox O2 Delivery O2 Flow Rate FiO2 06/19/20 17:00 98.4 106 16 101/58 (72) 95 Room Air Disposition: HOME, SELF-CARE Condition: Stable Scripts Clotrimazole* (LOTRIMIN*) 15 Gm Cream..g. 1 APPLIC TOPIC TWICE A DAY, #15 GM Prov: Jennifer Farrell 06/19/20 Doxycycline Monohydrate* (DOXYCYCLINE MONOHYDRATE*) 100 Mg Capsule 100 MG ORAL TWICE A DAY for 7 Days, #14 CAP 0 Refills Prov: Jennifer Farrell 06/19/20 Referrals: [facility],REFERRING (PCP) Sonja Morillo Comp. [facility] Patient Instructions: Urethritis, Adult Additional Instructions: Take medications as directed. Follow up with a Primary Care Provider in 3-5 days, even if your symptoms have resolved. --Please review list of primary care clinics, if you do not already have a primary care provider Return sooner to ED if new symptoms occur, or current symptoms become worse. - Please note that this Emergency Department Report was dictated using [employer]reel man technology software, occasionally this can lead to erroneous entry secondary to interpretation by the dictation equipment. Jennifer Farrell Jun 19, 2020 17:35
[2020-06-19] MEDS ORDERED: DOXYCYCLINE MO100 MG ORAL (17:38)
[2020-06-19] MEDS ORDERED: CLOTRIMAZOLE15 GM TOPIC (17:38)
--- NOTE | 2020-06-19 18:00 | NUR ---
ED Nurse Note: Pt cleared by health care Provider for discharge. DC instructions/prescription was given and explained to pt and verbalized understanding of teachings. All medical devices such as ID band removed. Pt is AAO x4, ambulatory and left with all personal belongings. pt without ADR noted. pt aware to f/u with pmd.
[2020-06-19 18:04] VITALS: BP 111/58
== END 2020-06-19 18:05 | disposition home or self-care (01) ==
LOC: EMR 17:21
DX: N34.2 Other urethritis (principal); R21 Rash and other nonspecific skin eruption
CPT/HCPCS: 81001; 96372; 96374; J0696; Z7502; 99284

== ENCOUNTER 2021-01-01 16:00 | Emergency (ER) | payer OTHER ==
[~2021-01-01] VITALS: Ht 175.3 cm; Wt 63.5 kg
[~2021-01-01 16:00] MED LIST changes: +CLOTRIMAZOLE15 GM TOPIC
[2021-01-01] MEDS ORDERED: Bicillin LA 1.2MMU/2ML SYR IM ONE (21:30)
--- NOTE | 2021-01-01 21:34 | NUR ---
Medicated as ordered,tolerated well.
--- NOTE | 2021-01-01 21:46 | Emergency Room Report ---
History of Present Illness General Chief Complaint: General Complaint Source: Patient Present Illness HPI Disclaimer: Please note that this report is being documented using [employer] technology. This can lead to erroneous entry secondary to incorrect interpretation by the dictating instrument. HPI: 30-year-old male presents for evaluation of genital rash. He states 2 days ago noticed a discoloration around his penis. Multiple spots. Nontender. No vesicles. Denies breakdown. Denies dysuria, penile discharge, pain of any kind. Denies any discomfort. He has been treated previously for STI. No recent testing. Otherwise denies fever, chills, abdominal pain or other symptoms. 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 EOMI. Resp: Normal work of breathing Abdomen: Soft, nontender, nondistended : Circumcised male. Normal-appearing external genitalia. Mild discolorations and spots around the penis. No raised edges. No induration. No warmth. No fluctuance. No vesicles. No erythema. No edema. No discharge from meatus. Testicles in anatomic position nontender. Skin: Intact. No abrasions, laceration or rash over the exposed skin MSK: Normal tone and bulk. Moving all extremities. No obvious deformity. Neuro: Awake and alert. Mentating appropriately Medical Decision Making Diagnostic Impression: Primary Impression: Rash of genitalia ER Course 22-year-old male presents for evaluation of genital rash. No symptoms of ure thritis. Discoloration around the penis and multiple spots may be atypical primary simple cyst. Will treat with penicillin and refer to outpatient STD clinic for all other testing. His partner will be tested as well. Instructed to return with new or worsening symptoms. He understands and agrees with the treatment plan. Last Vital Signs Date Time Temp Pulse Resp B/P (MAP) Pulse Ox O2 Delivery O2 Flow Rate FiO2 01/01/21 20:43 97.9 66 18 107/58 (74) 97 Room Air Disposition: HOME, SELF-CARE Condition: Stable Referrals: [facility] *Patients are seen by appointment only* [facility] Patient Instructions: Sexually Transmitted Disease Additional Instructions: You were given 2,500,000 units of intramuscular penicillin today for possible syphilis. You need testing for all other STDs. Please follow-up with one of the clinics listed here in your discharge paperwork for STD testing including HIV, hepatitis, herpes virus, syphilis, chlamydia, gonorrhea among others. Refrain from sexual contact until you obtain these results. Notify all sexual partners of any positive results. Return to the emergency department new or worsening symptoms. Please follow-up with your primary care doctor in the next 1 to 3 days to discuss this emergency department visit and for reevaluation. If you have any new or worsening symptoms please return to the emergency department for reeval uation. Please note that this report is being documented using [employer] technology. This can lead to erroneous entry secondary to incorrect interpretation by the dictating instrument. Dago Montilla MD Jan 01, 2021 21:46
[2021-01-01 22:47] VITALS: BP 107/58
== END 2021-01-01 21:35 | disposition home or self-care (01) ==
LOC: EMR 21:01
DX: R21 Rash and other nonspecific skin eruption (principal); Z91.013 Allergy to seafood
CPT/HCPCS: 96372; J0561; Z7502; 99283